=== PATIENT | female | born 1945 | race Caucasian/White ===

== ENCOUNTER → 2016-10-22 17:25 | Outpatient (CLI) | payer MEDICARE, BC ==
[2014-09-20 07:23] VITALS: BMI 24.8
[~2016-10-22 17:25] MED LIST: ARBINOXA4 MG/5 ML PO; NEXIUM20 MG PO; PREMARIN0.625 MG PO; ZESTRIL40 MG PO
== END | disposition home or self-care (01) ==
LOC: D.RAD 17:25
DX: J32.9 Chronic sinusitis, unspecified (principal)

== ENCOUNTER 2016-11-22 03:37 | Emergency (ER) | payer MEDICARE, BC ==
[2014-09-20 07:23] VITALS: BMI 24.8
[2016-11-22 04:33] LABS: BASOPHILS 0.2 % (0.0-2.0); EOSINOPHILS 0.4 % (0-7); HEMATOCRIT 35.2 % (36.0-48.0); HEMOGLOBIN 11.7 g/dL (12-16); IMMATURE GRANULOCYTES 0.2 % (0-5); LYMPHOCYTES 22.7 % (15-50); MCH 32.6 pg (26.0-34.0); MCHC 33.2 g/dL (31.0-37.0); MCV 98.1 fL (80.0-100.0); MEAN PLATELET VOLUME 10.6 fL (7.4-10.4); MONOCYTES 11.4 % (2-11); NEUTROPHILS 65.1 % (40-80); PLATELET COUNT 306 10x3/uL (130-400); RBC 3.59 10x6/uL (4.00-5.40); RDW 13.6 % (11.5-14.5); WBC 8.2 10x3/uL (4.8-10.8)
[2016-11-22 04:55] LABS: ALBUMIN 3.8 g/dL (3.4-5.0); ALKALINE PHOSPHATASE 59 U/L (46-116); ALT (SGPT) 29 U/L (10-68); BILIRUBIN - TOTAL 0.33 mg/dL (0.2-1.3); C-REACTIVE PROTEIN 4.1 mg/dL (0.0-0.9); CALC OSMOLALITY 275 mosm/kg (275-300); CALCIUM 9.6 mg/dL (8.5-10.1); CARBON DIOXIDE 27.5 mmol/L (21.0-32.0); CHLORIDE - SERUM 102 mmol/L (98-107); CREATINE KINASE 191 UL (21-215); CREATININE - SERUM 0.7 mg/dL (0.6-1.3); GLUCOSE 107 mg/dL (74-106); POTASSIUM - SERUM 4.2 mmol/L (3.5-5.1); PROTEIN - SERUM 7.3 g/dL (6.4-8.2); SODIUM 137 mmol/L (136-145); UREA NITROGEN 19 mg/dL (7-18); eGFR NON AFRICAN AMERICAN 87 mL/min (90-120)
== END 2016-11-22 05:14 | disposition home or self-care (01) ==
LOC: D.ER 03:37
PROVIDERS: Family Medicine
DX: M43.6 Torticollis (principal); K21.9 Gastro-esophageal reflux disease without esophagitis; I10 Essential (primary) hypertension

== ENCOUNTER 2018-07-11 08:00 | Outpatient (CLI) | payer MEDICARE, BC ==
[2014-09-20 07:23] VITALS: BMI 24.8
== END 2018-07-11 09:00 | disposition home or self-care (01) ==
LOC: D.MAMMO 08:00
DX: Z12.31 Encounter for screening mammogram for malignant neoplasm of breast (principal)